=== PATIENT | male | born 1995 | race Two or more races ===

== ENCOUNTER 2023-02-02 13:35 | Inpatient (IN) | payer OTHER ==
[~2023-02-02] VITALS: Ht 188 cm; Wt 108.9 kg
--- NOTE | 2023-02-02 13:53 | NUR ---
SE RECIBE PTE ALERTA Y ORIENTADO X3 EL CUAL REFIERE TENER DOLOR ABDOMINAL DESDE HACE 2 RANGEL. PTE VERBALIZA TENER DIVERTICULITIS
--- NOTE | 2023-02-02 14:50 | NUR ---
SE REALIZA ADMINISTRACION DE MEDICAMENTOS POR ORDEN MEDICA, SE ORIENTA A PACIENTE SOBRE ORDENES MEDICA.
== END 2023-02-07 14:33 | disposition home or self-care (01) | DRG 392 ==
LOC: ER 13:35 → MEDJ 21:59
PROVIDERS: ADMIT Internal Medicine; ATTEND Internal Medicine
PROC: BW21YZZ Computerized Tomography (CT Scan) of Abdomen and Pelvis using Other Contrast (ICD-10-PCS; principal; 2023-02-02)
DX: K57.92 Diverticulitis of intestine, part unspecified, without perforation or abscess without bleeding (principal); K90.49 Malabsorption due to intolerance, not elsewhere classified; R10.31 Right lower quadrant pain; Z90.49 Acquired absence of other specified parts of digestive tract; Z20.822 Contact with and (suspected) exposure to COVID-19